=== PATIENT | male | born 1975 | race Caucasian/White ===

== ENCOUNTER 2017-09-18 10:02 | Emergency (ER) | payer MEDICARE, MEDICAID ==
[~2017-09-18] VITALS: Ht 177.8 cm; Wt 97.5 kg
[~2017-09-18 10:02] MED LIST: DIVA125T2 PO
[2017-09-18 10:17] VITALS: BP 133/59
== END 2017-09-18 11:48 | disposition home or self-care (01) ==
LOC: ED 11:22
DX: Z76.0 Encounter for issue of repeat prescription (principal); F17.210 Nicotine dependence, cigarettes, uncomplicated; J45.909 Unspecified asthma, uncomplicated
CPT/HCPCS: 93005; 99283

== ENCOUNTER 2018-12-03 10:26 | Inpatient (IN) | payer MEDICARE, MEDICAID ==
[~2018-12-03] VITALS: Ht 177.8 cm; Wt 91.0 kg
--- NOTE | 2018-12-03 10:36 | NUR ---
BIB [facility]. C/O RUQ pain x 45 min and N/V since last night. Patient very combative and arugmentative with staff. Patient uncooperative with vitals and exam. Will continue to monitor.
--- NOTE | 2018-12-03 10:49 | NUR ---
Patient states, "I'm having a heart attack". Patient unable to verbalize symptoms.
[2018-12-03] MEDS ORDERED: ASPIRIN 81 MG TABLET CHEW PO ONE (11:00)
[2018-12-03 11:17] LABS: BASOPHILS # (AUTO) 0.04 x10^3/uL (0-0.1); BASOPHILS % (AUTO) 0 % (0-1); EOSINOPHILS # (AUTO) 0.04 x10^3/uL (0-0.4); EOSINOPHILS % (AUTO) 0 % (1-7); LYMPHOCYTES # (AUTO) 3.53 x10^3/uL (1-3.4); LYMPHOCYTES % (AUTO) 27 % (22-44); MD NO; MEAN CORPUSCULAR HEMOGLOBIN 32.2 pg (27.5-34.5); MEAN CORPUSCULAR HGB CONC 33.8 g/dL (33.2-36.2); MEAN CORPUSCULAR VOLUME 95.4 fL (81-97); MONOCYTES # (AUTO) 0.85 x10^3/uL (0.2-0.8); MONOCYTES % (AUTO) 7 % (2-9); NEUTROPHILS # (AUTO) 8.53 x10^3/uL (1.8-6.8); NEUTROPHILS % (AUTO) 66 % (42-75); PLATELET COUNT 279 x10^3/uL (130-400); RED BLOOD COUNT 4.97 x10^6/uL (4.38-5.82); RED CELL DISTRIBUTION WIDTH 13.9 % (9.4-14.8)
[2018-12-03 11:19] LABS: ALANINE AMINOTRANSFERASE 31 U/L (12-78); ALBUMIN 3.9 g/dL (3.4-5.0); ANION GAP 5 mmol/L (5-15); CALCIUM 8.8 mg/dL (8.5-10.1); CHLORIDE 105 mmol/L (98-107); CREATININE 1.11 mg/dL (0.7-1.3)
[2018-12-03 11:24] LABS: ALKALINE PHOSPHATASE 82 U/L (45-117); BILIRUBIN,TOTAL 0.5 mg/dL (0.2-1.0); TOTAL PROTEIN 7.3 g/dL (6.4-8.2); TROPONIN I < 0.015 ng/mL (0.000-0.045)
[2018-12-03] MEDS ORDERED: ONDANSETRON 2MG/ML, 2ML ONE ×2 (11:43→14:39)
[2018-12-03] MEDS ORDERED: MORPHINE SULFATE 4 MG/ML, 1ML ONE (11:43)
[2018-12-03] MEDS ORDERED: MORPHINE SULFATE 4 MG/ML, 1ML IVPush ONE (12:00)
[2018-12-03] MEDS ORDERED: ONDANSETRON 2MG/ML, 2ML IVPush ONE (12:00)
--- NOTE | 2018-12-03 12:07 | NUR ---
IV started and meds admin. No other needs.
--- NOTE | 2018-12-03 12:25 | NUR ---
C/O to have complaints of pain, but states it has improved.
[2018-12-03] MEDS ORDERED: OMNIPAQUE 350 MG/ML, 100ML BOTTLE ONE (12:44)
[2018-12-03] MEDS ORDERED: SODIUM CHLORIDE 0.9% 1,000 ML IV ONE (13:16)
[2018-12-03] MEDS ORDERED: HYDROmorphone 1 MG/ML, 1ML VIAL ONE (13:23)
[2018-12-03] MEDS ORDERED: CEFOTETAN PMX 1GM/50ML 50 ML ONE (13:23)
[2018-12-03] MEDS ORDERED: FAMOTIDINE 20 MG/2 ML ONE (13:23)
[2018-12-03] MEDS ORDERED: SODIUM CHLORIDE FLUSH 10ML SYR IVF ONE (13:30)
[2018-12-03] MEDS ORDERED: FAMOTIDINE 20 MG/2 ML IVP ONE (13:30)
[2018-12-03] MEDS ORDERED: HYDROmorphone 2 MG/ML, 1ML IVPush PRN (13:30)
[2018-12-03] MEDS ORDERED: CEFOTETAN PMX 1GM/50ML 50 ML IVPB ONE (13:30)
[2018-12-03] MEDS ORDERED: MIDAZOLAM 1 MG/ML, 2ML ONE (13:34)
[2018-12-03] MEDS ORDERED: FENTANYL PF 250 MCG/5ML ONE (13:35)
--- NOTE | 2018-12-03 13:40 | NUR ---
ILIANA and nora villa. Meds admin. VSS.
--- NOTE | 2018-12-03 13:45 | NUR ---
Report to OR.
[2018-12-03 13:51] LABS: INTERNATIONAL NORMALIZED RATIO 0.98 (0.93-1.1); PROTHROMBIN TIME 10.3 Seconds (9.6-11.5)
[2018-12-03] MEDS ORDERED: SUGAMMADEX 200 MG/2 ML IVPush ONE (14:39)
[2018-12-03] MEDS ORDERED: SUCCINYLCHOLINE 20 MG/ML, 10ML ONE (14:39)
[2018-12-03] MEDS ORDERED: EPHEDRINE 50 MG/ML, 1ML ONE (14:39)
[2018-12-03] MEDS ORDERED: CEFOTETAN PMX 2GM/50ML 50 ML IVPB ONE (14:39)
[2018-12-03] MEDS ORDERED: ROCURONIUM 10 MG/ML,10ML ONE (14:39)
[2018-12-03] MEDS ORDERED: PROPOFOL 10 MG/ML, 20ML ONE (14:39)
[2018-12-03] MEDS ORDERED: DEXAMETHASONE 4 MG/ML, 1ML ONE (14:39)
[2018-12-03] MEDS ORDERED: HYDROmorphone 2 MG/ML, 1ML ONE (15:49)
[2018-12-03] MEDS ORDERED: FENTANYL PF 100 MCG/2ML ONE (15:49)
[2018-12-03] MEDS: FENTANYL PF 100 MCG/2ML IV PRN ×2 (15:58→16:15)
[2018-12-03] MEDS: HYDROmorphone 2 MG/ML, 1ML IVPush PRN ×4 (15:58→16:21)
[2018-12-03] MEDS ORDERED: DIAZEPAM 5 MG/ML, 2ML IVPush PRN (16:00)
[2018-12-03] MEDS ORDERED: KETOROLAC 30 MG/1 ML IV PRN (16:00)
[2018-12-03] MEDS ORDERED: MEPERIDINE/PF 25MG/0.5ML IVPush PRN (16:00)
[2018-12-03] MEDS ORDERED: PROMETHAZINE 25 MG/ML, 1ML IV PRN (16:00)
[2018-12-03] MEDS ORDERED: ALBUTEROL SULFATE 2.5 MG/3 ML NPPB PRN (16:00)
[2018-12-03] MEDS ORDERED: hydrALAzine 20 MG/ML, 1ML IV PRN (16:00)
[2018-12-03] MEDS ORDERED: HYDROmorphone PCA 30 MG/30 ML IV PRN (16:00)
[2018-12-03] MEDS ORDERED: LABETALOL 5MG/ML, 20ML IV PRN (16:00)
[2018-12-03] MEDS ORDERED: OXYcodone 5 MG/5 ML ORAL.SOL UDC PO PRN (16:00)
[2018-12-03 16:50] VITALS: BP 110/74
[2018-12-03] MEDS ORDERED: hydrALAzine 20 MG/ML, 1ML IVPush PRN (17:00)
[2018-12-03] MEDS ORDERED: morphine SULFATE 10 MG/ML, 1ML IVPush PRN (17:00)
[2018-12-03] MEDS ORDERED: PANTOPRAZOLE 40 MG IV IVPush SCH (17:00)
[2018-12-03] MEDS ORDERED: D5%-0.45NACL+KCL 20MEQ 1,000 ML IV SCH (17:30)
[2018-12-03] MEDS ORDERED: DO NOT STOP ANTIBIOTICS AFTER 24HRS MC SCH (18:00)
[2018-12-03] MEDS ORDERED: DIPHENHYDRAMINE 25 MG CAPSULE PO PRN (18:00)
[2018-12-03] MEDS ORDERED: ONDANSETRON 2MG/ML, 2ML IV PRN (18:00)
[2018-12-03] MEDS ORDERED: ACETAMINOPHEN 650 MG SUPP PR PRN (18:00)
[2018-12-03] MEDS ORDERED: METRONIDAZOLE PMX 500MG/100ML 100 ML IV SCH (18:00)
[2018-12-03] MEDS ORDERED: LORazepam 1MG TABLET PO PRN (18:00)
[2018-12-03] MEDS ORDERED: ACETAMINOPHEN 325 MG TABLET PO PRN (18:00)
[2018-12-03] MEDS ORDERED: LORazepam 2 MG/ML, 1ML IV PRN (18:00)
[2018-12-03] MEDS: DEPAKOTE MC SCH (18:07)
[2018-12-03] MEDS: PANTOPRAZOLE 40 MG IV IVPush SCH (18:10)
[2018-12-03] MEDS: LACTATED RINGERS 1,000 ML IV SCH (18:11)
[2018-12-03] MEDS: PIPERACILLIN/TAZO/PMX 3.375GM 50 ML IV SCH ×2 (18:11→23:38)
[2018-12-03] MEDS: FLUCONAZOLE 400 MG/200 ML 200 ML IV SCH (18:56)
[2018-12-03] MEDS ORDERED: ENOXAPARIN 40 MG/0.4 ML SQ SCH (19:00)
[2018-12-03] MEDS ORDERED: HYDROmorphone 2 MG/ML, 1ML IV PRN (19:00)
[2018-12-03 20:00] VITALS: BP 101/65
[2018-12-03] MEDS: DIPHENHYDRAMINE 50 MG/ML, 1ML IV PRN (23:38)
[2018-12-03 23:42] VITALS: BP 109/71
[2018-12-04] MEDS: LACTATED RINGERS 1,000 ML IV SCH (01:20)
[2018-12-04] MEDS: DEPAKOTE MC SCH ×2 (01:55→08:17)
[2018-12-04 02:55] VITALS: BP 108/68
[2018-12-04] MEDS ORDERED: CEFOTETAN PMX 1GM/50ML 50 ML IV SCH (04:00)
[2018-12-04 05:12] LABS: BASOPHILS # (AUTO) 0.03 x10^3/uL (0-0.1); BASOPHILS % (AUTO) 0 % (0-1); EOSINOPHILS % (AUTO) 0 % (1-7); LYMPHOCYTES # (AUTO) 1.36 x10^3/uL (1-3.4); LYMPHOCYTES % (AUTO) 11 % (22-44); MD NO; MEAN CORPUSCULAR HEMOGLOBIN 31.8 pg (27.5-34.5); MEAN CORPUSCULAR HGB CONC 33.4 g/dL (33.2-36.2); MEAN CORPUSCULAR VOLUME 95.4 fL (81-97); MEAN PLATELET VOLUME 8.1 fL (7.4-10.4); MONOCYTES # (AUTO) 0.82 x10^3/uL (0.2-0.8); MONOCYTES % (AUTO) 7 % (2-9); NEUTROPHILS # (AUTO) 10.57 x10^3/uL (1.8-6.8); NEUTROPHILS % (AUTO) 83 % (42-75); PLATELET COUNT 243 x10^3/uL (130-400); RED BLOOD COUNT 4.76 x10^6/uL (4.38-5.82); RED CELL DISTRIBUTION WIDTH 14.2 % (9.4-14.8)
[2018-12-04 05:19] LABS: ALBUMIN 2.9 g/dL (3.4-5.0); ANION GAP 3 mmol/L (5-15); CALCIUM 8.4 mg/dL (8.5-10.1); CHLORIDE 105 mmol/L (98-107); CREATININE 1.03 mg/dL (0.7-1.3)
[2018-12-04 06:32] VITALS: BP 111/71
[2018-12-04] MEDS: PIPERACILLIN/TAZO/PMX 3.375GM 50 ML IV SCH ×4 (06:44→23:49)
[2018-12-04] MEDS ORDERED: ENOXAPARIN 40 MG/0.4 ML SQ SCH (08:00)
[2018-12-04] MEDS: D5%-0.45NACL+KCL 20MEQ 1,000 ML IV SCH ×2 (08:17→22:04)
[2018-12-04] MEDS: ENOXAPARIN 40 MG/0.4 ML SQ SCH (08:59)
[2018-12-04 12:30] VITALS: BP 93/63
[2018-12-04] MEDS: PANTOPRAZOLE 40 MG IV IVPush SCH (17:56)
[2018-12-04] MEDS: FLUCONAZOLE 400 MG/200 ML 200 ML IV SCH (18:35)
[2018-12-04 20:15] VITALS: BP 109/73
[2018-12-04] MEDS: DIPHENHYDRAMINE 50 MG/ML, 1ML IV PRN (21:55)
[2018-12-05 02:18] VITALS: BP 108/64
[2018-12-05 05:45] LABS: BASOPHILS # (AUTO) 0.03 x10^3/uL (0-0.1); BASOPHILS % (AUTO) 0 % (0-1); EOSINOPHILS # (AUTO) 0.04 x10^3/uL (0-0.4); EOSINOPHILS % (AUTO) 0 % (1-7); LYMPHOCYTES # (AUTO) 2.39 x10^3/uL (1-3.4); LYMPHOCYTES % (AUTO) 19 % (22-44); MD NO; MEAN CORPUSCULAR HEMOGLOBIN 32.4 pg (27.5-34.5); MEAN CORPUSCULAR HGB CONC 34.2 g/dL (33.2-36.2); MEAN CORPUSCULAR VOLUME 94.7 fL (81-97); MONOCYTES # (AUTO) 0.97 x10^3/uL (0.2-0.8); MONOCYTES % (AUTO) 8 % (2-9); NEUTROPHILS # (AUTO) 9.17 x10^3/uL (1.8-6.8); NEUTROPHILS % (AUTO) 73 % (42-75); PLATELET COUNT 234 x10^3/uL (130-400); RED BLOOD COUNT 4.18 x10^6/uL (4.38-5.82); RED CELL DISTRIBUTION WIDTH 13.6 % (9.4-14.8)
[2018-12-05] MEDS: PIPERACILLIN/TAZO/PMX 3.375GM 50 ML IV SCH ×4 (05:59→23:43)
[2018-12-05 06:00] LABS: ANION GAP 4 mmol/L (5-15); CALCIUM 8.4 mg/dL (8.5-10.1); CHLORIDE 103 mmol/L (98-107)
[2018-12-05 06:03] LABS: CREATININE 1.03 mg/dL (0.7-1.3)
[2018-12-05 06:18] VITALS: BP 113/73
[2018-12-05] MEDS: ENOXAPARIN 40 MG/0.4 ML SQ SCH (09:56)
[2018-12-05] MEDS: D5%-0.45NACL+KCL 20MEQ 1,000 ML IV SCH ×2 (11:32→23:43)
[2018-12-05 14:35] VITALS: BP 106/63
[2018-12-05] MEDS: PANTOPRAZOLE 40 MG IV IVPush SCH (17:50)
[2018-12-05] MEDS: FLUCONAZOLE 400 MG/200 ML 200 ML IV SCH (18:42)
[2018-12-05 19:23] VITALS: BP 117/75
[2018-12-06 01:33] VITALS: BP 128/72
[2018-12-06 05:27] LABS: BASOPHILS # (AUTO) 0.01 x10^3/uL (0-0.1); BASOPHILS % (AUTO) 0 % (0-1); EOSINOPHILS # (AUTO) 0.17 x10^3/uL (0-0.4); EOSINOPHILS % (AUTO) 2 % (1-7); LYMPHOCYTES # (AUTO) 2.23 x10^3/uL (1-3.4); LYMPHOCYTES % (AUTO) 25 % (22-44); MD NO; MEAN CORPUSCULAR HEMOGLOBIN 32.1 pg (27.5-34.5); MEAN CORPUSCULAR HGB CONC 34.2 g/dL (33.2-36.2); MEAN CORPUSCULAR VOLUME 93.7 fL (81-97); MEAN PLATELET VOLUME 7.9 fL (7.4-10.4); MONOCYTES # (AUTO) 0.68 x10^3/uL (0.2-0.8); MONOCYTES % (AUTO) 8 % (2-9); NEUTROPHILS # (AUTO) 5.75 x10^3/uL (1.8-6.8); NEUTROPHILS % (AUTO) 65 % (42-75); PLATELET COUNT 247 x10^3/uL (130-400); RED BLOOD COUNT 4.14 x10^6/uL (4.38-5.82); RED CELL DISTRIBUTION WIDTH 13.8 % (9.4-14.8)
[2018-12-06 05:33] LABS: CHLORIDE 103 mmol/L (98-107)
[2018-12-06 05:46] LABS: ANION GAP 6 mmol/L (5-15); CALCIUM 8.7 mg/dL (8.5-10.1); CREATININE 0.95 mg/dL (0.7-1.3)
[2018-12-06] MEDS: PIPERACILLIN/TAZO/PMX 3.375GM 50 ML IV SCH ×2 (05:52→10:44)
[2018-12-06 06:24] VITALS: BP 115/69
[2018-12-06] MEDS: ENOXAPARIN 40 MG/0.4 ML SQ SCH (08:31)
[2018-12-06 12:21] VITALS: BP 128/84
[2018-12-06] MEDS ORDERED: PANT40TA3 PO (12:47)
[2018-12-06] MEDS ORDERED: OXYC-302 PO (12:47)
[2018-12-06] MEDS ORDERED: AMOX1TAB64 PO (12:48)
[2018-12-06] MEDS ORDERED: SODIUM CHLORIDE FLUSH 10ML SYR IVF SCH (21:00)
== END 2018-12-06 14:05 | disposition home or self-care (01) | DRG 329 ==
LOC: ED 13:49 → EDIP 16:44 → 4NOR 16:52 → DCLOUNGE 12-06 13:57
PROVIDERS: ADMIT Hospitalist; ATTEND Hospitalist
PROC: 0D9670Z Drainage of Stomach with Drainage Device, Via Natural or Artificial Opening (ICD-10-PCS; 2018-12-03)
PROC: 0DU907Z Supplement Duodenum with Autologous Tissue Substitute, Open Approach (ICD-10-PCS; principal; 2018-12-03 14:00)
DX: K26.5 Chronic or unspecified duodenal ulcer with perforation (principal); K65.9 Peritonitis, unspecified; F15.10 Other stimulant abuse, uncomplicated; F17.200 Nicotine dependence, unspecified, uncomplicated; F20.9 Schizophrenia, unspecified; F31.9 Bipolar disorder, unspecified; Z88.8 Allergy status to other drugs, medicaments and biological substances; Z71.6 Tobacco abuse counseling
CPT/HCPCS: 36415; 71046; 74177; 74241; 80048; 80053; 82040; 83690; 83735; 84484; 85025; 85610; 93005; C1729; G0378; J1100; J1170; J1450; J1650; J2250; J2405; J2543; J2704; J3010; Q9967; C1765; C9113; J0330; J1200; J3480; J3490; J7030; J7120

== ENCOUNTER 2018-12-10 12:53 | Emergency (ER) | payer MEDICARE, MEDICAID ==
[~2018-12-10] VITALS: Ht 175.3 cm; Wt 85.0 kg
[~2018-12-10 12:53] MED LIST changes: +AMOX1TAB64 PO; +OXYC-302 PO; +PANT40TA3 PO
[2018-12-10 13:07] VITALS: BP 115/79
--- NOTE | 2018-12-10 13:32 | NUR ---
PT INSTRUCTED TO GO SEE DR. BERNARDO. PT GIVEN NUMBER AND INSTRUCTED TO CALL TO MAKE AN APPOINTMENT TODAY.
== END 2018-12-10 14:25 | disposition left against medical advice (07) ==
LOC: ED 14:19
DX: Z48.01 Encounter for change or removal of surgical wound dressing (principal)
CPT/HCPCS: 99281

== ENCOUNTER 2019-05-20 14:29 | Inpatient (IN) | payer MEDICARE, MEDICAID ==
[~2019-05-20] VITALS: Ht 177.8 cm; Wt 75.0 kg
[2019-05-20] MEDS ORDERED: ONDANSETRON ODT 4 MG PO PRN (15:00)
[2019-05-20] MEDS ORDERED: BISACODYL 10 MG SUPP PR PRN (15:00)
[2019-05-20] MEDS ORDERED: DOCUSATE 100 MG CAPSULE PO PRN (15:00)
[2019-05-20] MEDS ORDERED: POLYETHYLENE GLYCOL 17 GM PACKET PO PRN (15:00)
[2019-05-20] MEDS ORDERED: ACETAMINOPHEN 325 MG TABLET PO PRN (15:00)
[2019-05-20 17:11] VITALS: BP 131/70
[2019-05-20 18:13] LABS: FREE T4 (FREE THYROXINE) 0.99 ng/dL (0.76-1.46); LDL/HDL RATIO 0.5 (0.5-3.0)
[2019-05-20 19:11] VITALS: BP 135/86
[2019-05-21 05:16] LABS: BASOPHILS # (AUTO) 0.06 x10^3/uL (0-0.1); BASOPHILS % (AUTO) 1 % (0-1); EOSINOPHILS # (AUTO) 0.26 x10^3/uL (0-0.4); EOSINOPHILS % (AUTO) 4 % (1-7); LYMPHOCYTES # (AUTO) 3.65 x10^3/uL (1-3.4); LYMPHOCYTES % (AUTO) 51 % (22-44); MD NO; MEAN CORPUSCULAR HEMOGLOBIN 30.9 pg (27.5-34.5); MEAN CORPUSCULAR HGB CONC 33.1 g/dL (33.2-36.2); MEAN CORPUSCULAR VOLUME 93.4 fL (81-97); MEAN PLATELET VOLUME 8.1 fL (7.4-10.4); MONOCYTES # (AUTO) 0.41 x10^3/uL (0.2-0.8); MONOCYTES % (AUTO) 6 % (2-9); NEUTROPHILS # (AUTO) 2.78 x10^3/uL (1.8-6.8); NEUTROPHILS % (AUTO) 39 % (42-75); PLATELET COUNT 268 x10^3/uL (130-400); RED BLOOD COUNT 4.32 x10^6/uL (4.38-5.82); RED CELL DISTRIBUTION WIDTH 14.4 % (9.4-14.8)
[2019-05-21 05:25] LABS: ANION GAP 6 mmol/L (5-15); CALCIUM 8.3 mg/dL (8.5-10.1); CHLORIDE 106 mmol/L (98-107)
[2019-05-21 05:26] LABS: CREATININE 0.86 mg/dL (0.7-1.3)
[2019-05-21] MEDS ORDERED: FLU VACC QS2019-20 36MOS UP/PF 0.5 ML IM-VACC ONE (07:00)
[2019-05-21 07:34] VITALS: BP 116/76
[2019-05-21 14:58] LABS: HEMOGLOBIN A1C 5.9 % (4.2-6.3)
[2019-05-21] MEDS: CALCIUM CARBONATE 500 MG TABLET PO SCH (20:37)
[2019-05-21] MEDS: OLANZAPINE 10 MG TABLET PO SCH (20:38)
[2019-05-21] MEDS: CARBAMAZEPINE 200 MG TABLET PO SCH (20:38)
[2019-05-21] MEDS: TRAZODONE 100MG TABLET PO SCH (20:39)
[2019-05-22 07:06] VITALS: BP 129/76
[2019-05-22] MEDS: CALCIUM CARBONATE 500 MG TABLET PO SCH ×2 (08:10→20:34)
[2019-05-22] MEDS: CARBAMAZEPINE 200 MG TABLET PO SCH ×2 (08:10→20:35)
[2019-05-22] MEDS: POTASSIUM CHLORIDE 20 MEQ TAB.ER.PRT PO SCH (08:10)
[2019-05-22] MEDS ORDERED: ZIPRASIDONE 20MG CAPSULE PO PRN (12:00)
[2019-05-22 19:06] VITALS: BP 124/65
[2019-05-22] MEDS: OLANZAPINE 10 MG TABLET PO SCH (20:34)
[2019-05-22] MEDS: TRAZODONE 100MG TABLET PO SCH (20:35)
[2019-05-23 07:24] VITALS: BP 105/37
[2019-05-23] MEDS: CALCIUM CARBONATE 500 MG TABLET PO SCH ×2 (08:42→20:05)
[2019-05-23] MEDS: POTASSIUM CHLORIDE 20 MEQ TAB.ER.PRT PO SCH (08:42)
[2019-05-23] MEDS: CARBAMAZEPINE 200 MG TABLET PO SCH ×2 (08:42→20:05)
[2019-05-23 16:33] LABS: MICROSCOPIC NOT IND
[2019-05-23 16:43] LABS: CULTURE INDICATED? NO
[2019-05-23 19:26] VITALS: BP 102/61
[2019-05-23] MEDS: OLANZAPINE 10 MG TABLET PO SCH (20:04)
[2019-05-23] MEDS: TRAZODONE 100MG TABLET PO SCH (20:04)
[2019-05-24 07:25] VITALS: BP 109/68
[2019-05-24] MEDS: CARBAMAZEPINE 200 MG TABLET PO SCH (08:02)
[2019-05-24] MEDS: CALCIUM CARBONATE 500 MG TABLET PO SCH (08:02)
[2019-05-24] MEDS: POTASSIUM CHLORIDE 20 MEQ TAB.ER.PRT PO SCH (08:02)
== END 2019-05-24 08:00 | disposition home or self-care (01) | DRG 885 ==
LOC: OBSVTOIN 16:34 → 3E 16:34
PROVIDERS: ADMIT Psychiatry & Neurology Psychosomatic Medicine; ATTEND Psychiatry & Neurology Psychosomatic Medicine
DX: F25.0 Schizoaffective disorder, bipolar type (principal); F23 Brief psychotic disorder; F15.20 Other stimulant dependence, uncomplicated; E83.51 Hypocalcemia; E87.6 Hypokalemia; F12.20 Cannabis dependence, uncomplicated; F17.200 Nicotine dependence, unspecified, uncomplicated; G47.00 Insomnia, unspecified; Z79.899 Other long term (current) drug therapy; Z87.11 Personal history of peptic ulcer disease; Z91.19 Patient's noncompliance with other medical treatment and regimen
CPT/HCPCS: 36415; 71045; 80048; 80061; 81003; 82140; 82607; 83036; 84439; 84443; 85025; 90686; 93005

== ENCOUNTER 2019-08-29 06:10 | Emergency (ER) | payer MEDICARE, MEDICAID ==
[~2019-08-29] VITALS: Ht 177.8 cm; Wt 70.2 kg
[~2019-08-29 06:10] MED LIST changes: +BREX4TAB BC; +CARB200T4 PO; +DIVA250T PO; +HYDR-826 PO; +OLAN10TA7 PO; +PALI234D IM; +ZIPR20CA2 PO
--- NOTE | 2019-08-29 06:57 | NUR ---
REPORT GIVEN TO OZZY PARTIDA
--- NOTE | 2019-08-29 06:57 | NUR ---
Assumed c/o pt from OZZY Tobar. Pt awake, alert, sitting up in bed. No needs at this time.
--- NOTE | 2019-08-29 06:59 | NUR ---
DELAY DUE TO CODE NEURO FIRST/ONE CT ROOM DOWN
[2019-08-29 07:16] LABS: BASOPHILS # (AUTO) 0.02 x10^3/uL (0-0.1); BASOPHILS % (AUTO) 0 % (0-1); EOSINOPHILS # (AUTO) 0.06 x10^3/uL (0-0.4); EOSINOPHILS % (AUTO) 1 % (1-7); LYMPHOCYTES # (AUTO) 2.36 x10^3/uL (1-3.4); LYMPHOCYTES % (AUTO) 42 % (22-44); MD NO; MEAN CORPUSCULAR HEMOGLOBIN 30.9 pg (27.5-34.5); MEAN CORPUSCULAR HGB CONC 33.4 g/dL (33.2-36.2); MEAN CORPUSCULAR VOLUME 92.5 fL (81-97); MEAN PLATELET VOLUME 7.6 fL (7.4-10.4); MONOCYTES # (AUTO) 0.53 x10^3/uL (0.2-0.8); MONOCYTES % (AUTO) 9 % (2-9); NEUTROPHILS # (AUTO) 2.69 x10^3/uL (1.8-6.8); NEUTROPHILS % (AUTO) 48 % (42-75); PLATELET COUNT 263 x10^3/uL (130-400); RED BLOOD COUNT 4.85 x10^6/uL (4.38-5.82); RED CELL DISTRIBUTION WIDTH 13.4 % (9.4-14.8)
[2019-08-29 07:27] LABS: ALBUMIN 3.4 g/dL (3.4-5.0); ANION GAP 7 mmol/L (5-15); CALCIUM 8.4 mg/dL (8.5-10.1); CHLORIDE 102 mmol/L (98-107); CREATININE 0.86 mg/dL (0.7-1.3)
[2019-08-29 07:28] LABS: SALICYLATE LEVEL 2.5 mg/dL (2.8-20.0)
--- NOTE | 2019-08-29 07:35 | NUR ---
Pt aware of need for urine sample call light within reach, urinal @ BS, urine sample cup on counter.
[2019-08-29 07:36] VITALS: BP 100/74
[2019-08-29 08:37] LABS: AMPHETAMINE SCREEN, URINE Negative (Negative); BARBITURATE SCREEN, URINE Negative (Negative); BENZODIAZEPINE SCREEN, URINE Negative (Negative); CANNABINOID SCREEN, URINE Negative (Negative); COCAINE SCREEN, URINE Negative (Negative); METHADONE SCREEN, URINE Negative (Negative); OPIATE SCREEN, URINE Negative (Negative)
--- NOTE | 2019-08-29 08:52 | NUR ---
Pt walked out to [facility] & down street witnessed by security. No IV was IP. Provider updated.
== END 2019-08-29 08:56 | disposition left against medical advice (07) ==
LOC: ED 08:55
DX: S09.90XA Unspecified injury of head, initial encounter (principal); F25.9 Schizoaffective disorder, unspecified; X58.XXXA Exposure to other specified factors, initial encounter; Y93.89 Activity, other specified; Y92.89 Other specified places as the place of occurrence of the external cause; Y99.8 Other external cause status; Z91.19 Patient's noncompliance with other medical treatment and regimen
CPT/HCPCS: 36415; 70450; 80048; 80307; 82040; 85025; 99284

== ENCOUNTER 2019-09-12 20:32 | Emergency (ER) | payer MEDICARE, MEDICAID ==
[~2019-09-12] VITALS: Ht 177.8 cm; Wt 78.3 kg
[2019-09-12] MEDS ORDERED: ZIPRASIDONE 20 MG INJ IM ONE ×2 (21:00)
--- NOTE | 2019-09-12 21:08 | NUR ---
[place] REQUEST MADE TO JENARO TEJEDA
--- NOTE | 2019-09-12 21:22 | NUR ---
PT PLACED INTO ROOM #2, PT COMBATIVE AND MUMBLING INCOHERENTLY, PT UNABLE TO ANSWER QUESTIONS, SECURITY CALLED TO ROOM, MEDICATED FOR SAFETY OF SELF AND STAFF AND PLACED INTO 4 POINT LOCKING RESTRAINTS, PT SPITTING ON DOOR, REPORT GIVEN TO FLYNN PRECIADO
--- NOTE | 2019-09-12 21:22 | NUR ---
REPORT RECEIVED FROM BEATRIZ; PT IN 4-PT RESTRAINTS, SPITTING ON DOOR,SECURITY CALLED & PLACED A SPIT CAST ON PT, PT VERBALIZED UNDERSTANDING OF USE; NAD, NO NEEDS AT THIS TIME, SECURITY LOWE DOWN, AWAITING WALKER FITCH.
--- NOTE | 2019-09-12 21:49 | NUR ---
REPORT GIVEN TO RASHID Slater
[2019-09-12 22:20] LABS: BASOPHILS # (AUTO) 0.05 x10^3/uL (0-0.1); BASOPHILS % (AUTO) 1 % (0-1); EOSINOPHILS # (AUTO) 0.09 x10^3/uL (0-0.4); EOSINOPHILS % (AUTO) 1 % (1-7); LYMPHOCYTES # (AUTO) 3.44 x10^3/uL (1-3.4); LYMPHOCYTES % (AUTO) 34 % (22-44); MD NO; MEAN CORPUSCULAR HEMOGLOBIN 30.6 pg (27.5-34.5); MEAN CORPUSCULAR HGB CONC 33.8 g/dL (33.2-36.2); MEAN CORPUSCULAR VOLUME 90.5 fL (81-97); MONOCYTES # (AUTO) 0.75 x10^3/uL (0.2-0.8); MONOCYTES % (AUTO) 7 % (2-9); NEUTROPHILS # (AUTO) 5.73 x10^3/uL (1.8-6.8); NEUTROPHILS % (AUTO) 57 % (42-75); PLATELET COUNT 282 x10^3/uL (130-400); RED CELL DISTRIBUTION WIDTH 13.1 % (9.4-14.8)
[2019-09-12 22:29] LABS: ALANINE AMINOTRANSFERASE 31 U/L (12-78); ALBUMIN 3.2 g/dL (3.4-5.0); ANION GAP 9 mmol/L (5-15); CALCIUM 6.4 mg/dL (8.5-10.1); CHLORIDE 102 mmol/L (98-107); CREATININE 0.99 mg/dL (0.7-1.3)
[2019-09-12 22:31] LABS: ALKALINE PHOSPHATASE 103 U/L (45-117); BILIRUBIN,TOTAL 0.2 mg/dL (0.2-1.0); SALICYLATE LEVEL < 1.7 mg/dL (2.8-20.0); TOTAL PROTEIN 6.5 g/dL (6.4-8.2)
--- NOTE | 2019-09-12 22:57 | NUR ---
UA OBTAINED. SECURITY IN RM REMOVING RESTRAINTS AND SPIT MASK. PT CALM AND COOPERATIVE. SITTER IN DOORWAY.
[2019-09-12 23:17] LABS: AMPHETAMINE SCREEN, URINE Positive (Negative); BARBITURATE SCREEN, URINE Negative (Negative); BENZODIAZEPINE SCREEN, URINE Negative (Negative); CANNABINOID SCREEN, URINE Negative (Negative); COCAINE SCREEN, URINE Negative (Negative); METHADONE SCREEN, URINE Negative (Negative); OPIATE SCREEN, URINE Negative (Negative)
[2019-09-13 00:06] VITALS: BP 109/72
--- NOTE | 2019-09-13 00:35 | NUR ---
PT PROVIDED SANDWICH AND CHIPS. PT CALM AND COOPERATIVE.
--- NOTE | 2019-09-13 01:04 | NUR ---
RESTING QUIETLY AT THIS TIME. SITTER OUTSIDE ROOM FOR PT SAFETY
--- NOTE | 2019-09-13 01:30 | NUR ---
primary nurse back from lunch break.
== END 2019-09-13 05:05 | disposition home or self-care (01) ==
LOC: ED 09-13 00:01
DX: F15.150 Other stimulant abuse with stimulant-induced psychotic disorder with delusions (principal); F17.210 Nicotine dependence, cigarettes, uncomplicated
CPT/HCPCS: 36415; 80053; 80307; 85025; 96372; 99283; J3486

== ENCOUNTER 2019-11-11 22:30 | Emergency (ER) | payer MEDICARE, MEDICAID ==
[~2019-11-11] VITALS: Ht 177.8 cm; Wt 73.2 kg
[2019-11-11 22:35] VITALS: BP 121/73
== END 2019-11-11 23:00 ==
LOC: ED 22:54
DX: F12.10 Cannabis abuse, uncomplicated (principal); F17.200 Nicotine dependence, unspecified, uncomplicated; Z72.9 Problem related to lifestyle, unspecified
CPT/HCPCS: 99281

== ENCOUNTER 2019-12-16 15:28 | Emergency (ER) | payer MEDICARE, MEDICAID ==
[~2019-12-16] VITALS: Ht 177.8 cm; Wt 80.0 kg
[2019-12-16 15:31] VITALS: BP 123/77
--- NOTE | 2019-12-16 15:37 | NUR ---
bib law enforcement. Legal hold placed at [facility] d/t unable to care for self. flight of ideas/paranoid delusion. denies si/hi. pt's aox4. resps even and unlabored. room secure.
--- NOTE | 2019-12-16 15:50 | NUR ---
requesting sitter at this time.
--- NOTE | 2019-12-16 16:00 | NUR ---
electromyographic technician at bedside to evaluate.
--- NOTE | 2019-12-16 16:23 | NUR ---
sitter monitoring pt from [facility] for safety at this time.
--- NOTE | 2019-12-16 16:35 | NUR ---
awainting dc per edmd/assembler garment form. belonging bag given at this time.
--- NOTE | 2019-12-16 17:32 | NUR ---
Patient given discharge instructions and they have confirmed that they understand the instructions. Patient ambulatory with steady gait.
== END 2019-12-16 17:33 | disposition home or self-care (01) ==
LOC: ED 17:17
DX: F22 Delusional disorders (principal); Z87.891 Personal history of nicotine dependence; F32.9 Major depressive disorder, single episode, unspecified; F20.9 Schizophrenia, unspecified
CPT/HCPCS: 99283

== ENCOUNTER 2020-02-20 07:14 | Emergency (ER) | payer MEDICARE, MEDICAID ==
[~2020-02-20] VITALS: Ht 170.2 cm; Wt 69.4 kg
[2020-02-20 07:16] VITALS: BP 113/79
--- NOTE | 2020-02-20 07:56 | NUR ---
FIRE CREW SPECIALIST: PT WALKED FROM RM 37 TO RM 01.
[2020-02-20 08:18] LABS: BASOPHILS # (AUTO) 0.06 x10^3/uL (0-0.1); BASOPHILS % (AUTO) 1 % (0-1); EOSINOPHILS # (AUTO) 0.22 x10^3/uL (0-0.4); EOSINOPHILS % (AUTO) 2 % (1-7); LYMPHOCYTES # (AUTO) 3.67 x10^3/uL (1-3.4); LYMPHOCYTES % (AUTO) 38 % (22-44); MD NO; MEAN CORPUSCULAR HEMOGLOBIN 30.1 pg (27.5-34.5); MEAN CORPUSCULAR HGB CONC 32.8 g/dL (33.2-36.2); MEAN CORPUSCULAR VOLUME 91.8 fL (81-97); MEAN PLATELET VOLUME 7.4 fL (7.4-10.4); MONOCYTES # (AUTO) 0.83 x10^3/uL (0.2-0.8); MONOCYTES % (AUTO) 9 % (2-9); NEUTROPHILS # (AUTO) 4.85 x10^3/uL (1.8-6.8); NEUTROPHILS % (AUTO) 50 % (42-75); PLATELET COUNT 288 x10^3/uL (130-400); RED BLOOD COUNT 4.24 x10^6/uL (4.38-5.82); RED CELL DISTRIBUTION WIDTH 13.6 % (9.4-14.8)
[2020-02-20 08:28] LABS: ALANINE AMINOTRANSFERASE 48 U/L (12-78); ALBUMIN 4.3 g/dL (3.4-5.0); ANION GAP 0 mmol/L (5-15); CALCIUM 7.4 mg/dL (8.5-10.1); CHLORIDE 107 mmol/L (98-107); CREATININE 1.03 mg/dL (0.7-1.3)
[2020-02-20 08:30] LABS: ALKALINE PHOSPHATASE 83 U/L (45-117); BILIRUBIN,TOTAL 0.3 mg/dL (0.2-1.0); SALICYLATE LEVEL 2.4 mg/dL (2.8-20.0); TOTAL PROTEIN 7.6 g/dL (6.4-8.2)
--- NOTE | 2020-02-20 08:57 | NUR ---
UA SENT. PT WHISPERING TO SELF. CONSTANTLY ACTIVE. PLEASANT, COOPERATIVE
[2020-02-20 09:07] LABS: AMPHETAMINE SCREEN, URINE Positive (Negative); BARBITURATE SCREEN, URINE Negative (Negative); BENZODIAZEPINE SCREEN, URINE Negative (Negative); CANNABINOID SCREEN, URINE Positive (Negative); COCAINE SCREEN, URINE Negative (Negative); METHADONE SCREEN, URINE Negative (Negative); OPIATE SCREEN, URINE Negative (Negative)
--- NOTE | 2020-02-20 09:34 | NUR ---
MEAL TRAY PROVIDED. WAITING FOR CONSULT W STRAP MACHINE OPERATOR
== END 2020-02-20 10:11 | disposition left against medical advice (07) ==
LOC: ED 08:41
DX: F15.259 Other stimulant dependence with stimulant-induced psychotic disorder, unspecified (principal); Z72.9 Problem related to lifestyle, unspecified; F20.9 Schizophrenia, unspecified; Z87.891 Personal history of nicotine dependence
CPT/HCPCS: 36415; 80053; 80307; 85025; 99283